=== PATIENT | female | born 1965 | race Two or more races ===

== ENCOUNTER 2017-11-06 04:51 | Emergency (ER) | payer OTHER ==
[~2017-11-06] VITALS: Ht 157.5 cm; Wt 89.8 kg
[~2017-11-06 04:51] MED LIST: ATIVAN1 MG; CITALOPRAM10 MG/5 ML; CLONAZEPAM1 GM; INTESTINEX680 MG PO
[2017-11-06] MEDS ORDERED: BUPROPION XL150 MG (05:33)
[2017-11-06] MEDS ORDERED: LEVOXYL25 MCG (05:33)
[2017-11-06] MEDS ORDERED: HYOSCYAMINE0.125 M2 (05:34)
[2017-11-06] MEDS ORDERED: CITALOPRAM20 MG/10 M (05:34)
== END 2017-11-06 11:58 | disposition home or self-care (01) ==
LOC: ER 04:51
DX: R10.31 Right lower quadrant pain (principal)

== ENCOUNTER 2021-04-26 07:47 | Outpatient (CLI) | payer OTHER ==
[~2021-04-26 07:47] MED LIST changes: +BUPROPION XL150 MG; +CITALOPRAM20 MG/10 M; +HYOSCYAMINE0.125 M2; +LEVOXYL25 MCG
== END 2021-04-26 07:50 | disposition home or self-care (01) ==
LOC: SONOGRAMA 07:47
PROVIDERS: ATTEND Pathology Anatomic Pathology & Clinical Pathology
DX: D34 Benign neoplasm of thyroid gland (principal); E04.1 Nontoxic single thyroid nodule; E04.8 Other specified nontoxic goiter; E07.89 Other specified disorders of thyroid

== ENCOUNTER 2024-09-22 11:51 | Emergency (ER) | payer OTHER ==
[~2024-09-22] VITALS: Ht 157.5 cm; Wt 89.4 kg
[~2024-09-22 11:51] MED LIST changes: +GLUMETZA500 MG PO; +RESTORIL15 MG PO; +SIMVASTATIN5 MG PO
[2024-09-22] MEDS ORDERED: GUAIFENESIN/DEXTROMETHORPHAN 10ML BLIST.PACK PO ONE (13:15)
[2024-09-22] MEDS ORDERED: IPRATROPIUM/ALBUTEROL SULFATE 3 ML AMPUL.NEB IH ONE ×2 (13:15→16:45)
[2024-09-22] MEDS ORDERED: METHYLPREDNISOLONE SOD SUCC 40 MG VIAL IV ONE (13:45)
[2024-09-22 13:59] LABS: HEMATOCRIT 43.6 % (36.0-45.00); HEMOGLOBIN 14.9 g/dL (12.0-15.00); MEAN CELL VOLUME 91.1 fL (80.00-100.00); MEAN CORPUSCULAR HEMOGLOBIN 31.2 pg (27.00-32.0); MEAN CORPUSCULAR HGB CONC 34.3 g/dl (32.0-36.0); PLATELET COUNT 243 K/uL (150-450); RED BLOOD COUNT 4.78 M/uL (4.00-6.00); RED CELL DISTRIBUTION WIDTH 14.2 % (11.5-14.5)
[2024-09-22 14:40] LABS: CALCIUM 10.7 mg/dL (8.5-10.1); CREATININE SERUM 0.62 mg/dL (0.55-1.02); GFR 99.21; POTASSIUM 4.77 mEq/L (3.5-5.1)
== END 2024-09-22 18:11 | disposition home or self-care (01) ==
LOC: ER 11:53
PROVIDERS: Emergency Medicine
DX: J45.901 Unspecified asthma with (acute) exacerbation (principal); J45.909 Unspecified asthma, uncomplicated; Z88.2 Allergy status to sulfonamides